=== PATIENT | male | born 1995 | race Caucasian/White ===

== ENCOUNTER 2019-09-05 09:00 | Emergency (ER) | payer OTHER, SELFPAY ==
[2019-09-05 09:02] VITALS: BP 147/93; PULSE 69; RESP 18; TEMP 36.7; O2SAT 98; BMI 30.7
--- NOTE | 2019-09-05 09:18 | CT_ITS ---
PROCEDURE: CT CERVICAL SPINE WO CON CLINICAL INDICATION: pain Neck pain and bilateral shoulder pain COMPARISON: No exams were available for comparison TECHNIQUE: Axial images obtained with sagittal and coronal reformats. All CT scans at the facility use one or more dose reduction, viz: automated exposure control, ma/kV adjustment per patient size (including targeted exams where dose is matched to indication, i.e. head), or iterative reconstruction technique. Axial spiral CT scanning performed of the cervical spine beginning at the base of the skull and continuing to the upper T-spine. 3-D multiplanar reconstruction with 3-D manipulation of volumetric data set in image rendering was completed by the radiologist and/or technologist with the supervision of the radiologist on independent workstation. FINDINGS: There is straightening/reversal of the normal lordosis which may be due to patient positioning or muscle spasm.. No acute fracture or dislocation. There is degenerative disc disease at C6-C7 with some sclerosis and hypertrophic change along the posterior aspect the C6-C7 disc space with small left paracentral disc osteophyte complex versus bony hypertrophic change which causes some minimal indentation of the thecal sac in the left paracentral region. Nonemergent MRI may provide further evaluation for possible impingement upon the cord or nerve roots. Lung apices are clear. There is scattered small nodes in the neck and mild prominence of the adenoids. No bony canal stenosis or foraminal narrowing. IMPRESSION: Degenerative disc disease at C6-C7 with posterior endplate hypertrophy and a small left paracentral disc osteophyte complex versus bony spurring otherwise negative CT of the cervical spine. Mild prominence of the adenoids with scattered small cervical lymph nodes. Dictated by: Cristopher Garcia MD 09/05/2019 10:23 Electronically signed by Cristopher Garcia MD in [place] 09/05/2019 10:23
--- NOTE | 2019-09-05 09:58 | HMH.EDGENADL ---
ED Disposition Clinical Impression: Intervertebral disc prolapse with impingement Disposition: Home, Self-Care Condition on Discharge: Good Instructions: DI for Acute Pain -- Adult Additional Instructions: Please follow-up with primary care provider to get an outpatient MRI scheduled then an appointment to see neurosurgery. Prescriptions: Nabumetone 750 mg PO BID 10 Days #20 tab Transmission Status: Pending to [facility] # Tizanidine HCl [Zanaflex 4mg tablet] 4 mg PO TID 10 Days #30 tab Transmission Status: Pending to [facility] # Referrals: Provider,Referral, [Primary Care Provider] - - Critical Care Critical Care Time: No Attestation: On 09/05/19, the high probability of a clinically significant, sudden or life threatening deterioration of the following system(s) required my full and direct attention, intervention and personal management. The time I documented below is in addition to time spent performing reported procedures but includes the following listed in this critical care notation. Medical Decision Making - Medical Records Medical records reviewed: Yes: I reviewed the patient's medical records. - Ralph Inquiry Pt receiving controlled substance: No Vital Signs: 09/05/19 09:02 Temperature 98.0 F Temperature Source Oral Pulse Rate [Radial] 69 Respiratory Rate 18 Blood Pressure [Right Arm] 147/93 H Blood Pressure Mean [Right Arm] 111 Blood Pressure Source [Right Arm] Automatic Cuff Blood Pressure Position [Right Arm] Sitting 02 Sat by Pulse Oximetry 98 Oxygen Delivery Method Room Air - Lab Data Lab results reviewed: Yes: I reviewed the patient's lab results. - CT Data CT Scan: C-Spine Time Received: 10:[address] Reviewed: Yes: I have viewed the radiologist's interpretation Preliminary Findings: Abnormal (Degenerative disc disease at C6-C7 with posterior endplate hypertrophy and a small left paracentral disc osteophyte complex versus bony spurring otherwise negative CT of the cervical spine.) General Adult HPI - General Chief complaint: PAIN Stated complaint: neck hurts, no accident Time Seen by Provider: 09/05/19 09:55 Mode of Arrival: Ambulatory Source of Information: Patient Limitations: No Limitations Description of Symptoms (Recalled from ER Triage Doc. by RN): Neck pain when looking up. States it has been going on since Tuesday. - History of Present Illness Onset (ago): year(s) Location: neck Radiation: non-radiation Severity: mild Severity scale (1-10): 3 Quality: sharp Consistency: intermittent Relieving factors: none Exacerbating factors: none Associated symptoms: other (Numbness tingling in hands). negative: denies other symptoms - Related Data Previous Rx's Medication Instructions Recorded Nabumetone 750 mg PO BID 10 Days #20 tab 09/05/19 Tizanidine HCl [Zanaflex 4mg 4 mg PO TID 10 Days #30 tab 09/05/19 tablet] Allergies Allergy/AdvReac Type Severity Reaction Status Date / Time No Known Allergies Allergy Verified 09/05/19 09:11 [facility] History - Hepatitis A Screen Drug use history?: No High risk sexual behaviors?: No History of sexually transmitted infection?: No Currently employed?: No Childcare worker?: No Do you have indoor plumbing?: Yes Do you have electricity?: Yes Attestation statement:: This patient has been screened for Hepatitis A risk factors. I have reviewed the patient's past medical history: Yes - Social History Educational Level: Completed High School Smoking Status: Current every day smoker # Packs/Day (cigarettes): 1 Alcohol Intake: never Occupational Status: other ROS Obtained: Yes All systems reviewed & no additional complaints - Constitutional Constitutional: Reports system reviewed and no additional complaints, except as docu - Eyes Eyes: Reports system reviewed and no additional complaints, except as docu - ENT Ears, Nose, Mouth, and Throat: Reports system reviewed and no add
[2019-09-05 10:59] VITALS: BP 147/93; PULSE 69; RESP 20; TEMP 36.7; O2SAT 97
== END 2019-09-05 11:01 | disposition home or self-care (01) ==
PROVIDERS: Emergency Provider Family Medicine
DX: M50.30 Other cervical disc degeneration, unspecified cervical region (principal)
CPT/HCPCS: 72125; 99282

== ENCOUNTER → 2019-10-04 10:58 | Outpatient (CLI) | payer OTHER, SELFPAY ==
--- NOTE | 2019-10-04 | MR_ITS ---
PROCEDURE: MR CERVICAL SPINE WO CON CLINICAL INDICATION: CERVICAL DISC DISEASE, TINGLING LEFT UPPER EXTREMITY Neck pain with intermittent numbness in bilateral hands, abnormal CT scan COMPARISON: CT CERVICAL SPINE WO CON from 09/05/2019 TECHNIQUE: Standard multiplanar multiecho sequences are performed without contrast. 3-D MIP and myelographic images are also rendered and reviewed FINDINGS: Normal alignment. There is straightening of the cervical lordosis which may be due to patient positioning or muscle spasm. C2-C3: Unremarkable. C3-C4: Unremarkable. C4-C5: Unremarkable. C5-C6: There is mild degenerative disc disease with mild bulging disc and a small central disc protrusion which is slightly eccentric toward the left without impingement. C6-C7: Mild degenerative disc disease. Osteosclerosis is present along the dorsal aspect of the disc space at this level better demonstrated with the recent CT of 09/05/2019. There is a small left paracentral disc osteophyte complex. No obvious impingement. C7-T1: Unremarkable appearance. IMPRESSION: 1. C5-C6: There is mild degenerative disc disease with mild bulging disc and a small central disc protrusion which is slightly eccentric toward the left without impingement. 2. C6-C7: Mild degenerative disc disease. Osteosclerosis is present along the dorsal aspect of the disc space at this level better demonstrated with the recent CT of 09/05/2019. There is a small left paracentral disc osteophyte complex. No obvious impingement. 3. No extruded herniated disc or canal stenosis Dictated by: Cristopher Garcia MD 10/05/2019 13:42 Electronically signed by Cristopher Garcia MD in [place] 10/05/2019 13:42
== END ==
PROVIDERS: PCP Family Medicine; Visit Provider Family Medicine
DX: M50.90 Cervical disc disorder, unspecified, unspecified cervical region (principal); R20.2 Paresthesia of skin
CPT/HCPCS: 72141; 76376

== ENCOUNTER → 2019-10-29 10:17 | Outpatient (POV) | payer OTHER, SELFPAY ==
[2019-10-29 10:43] VITALS: BP 146/72; PULSE 74; RESP 18; O2SAT 98; BMI 31.7
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
== END ==
PROVIDERS: PCP Family Medicine; Visit Provider Clinical Nurse Specialist Family Health
DX: M50.10 Cervical disc disorder with radiculopathy, unspecified cervical region (principal)
CPT/HCPCS: 99202